=== PATIENT | male | born 1955 | race American Indian/Alaskan Native ===

== ENCOUNTER 2017-11-09 05:42 | Day surgery (SDC) | payer BC ==
[2017-11-09] MEDS ORDERED: NACL 0.9% 1000 ML 1,000 ML IV SCH (06:00)
[2017-11-09] MEDS ORDERED: PEPCID PO NR (06:00)
[2017-11-09] MEDS ORDERED: VERSED IV NR (06:00)
[2017-11-09] MEDS ORDERED: NACL BACTERIOSTATIC INFILTRATI ONE (06:26)
[2017-11-09] MEDS ORDERED: PERCOCET 5/325 PO PRN (07:00)
[2017-11-09] MEDS ORDERED: MORPHINE IV PRN (07:00)
[2017-11-09] MEDS ORDERED: ZOFRAN IV PRN (07:00)
--- NOTE | 2017-11-09 07:00 | Anesthesia Day of Surgery ---
Anesthesia Day of Surgery - Day of Surgery Patient Examined: Yes Patient H&P Reviewed: Yes Patient is NPO: Yes
--- NOTE | 2017-11-09 07:00 | Anesthesia Consultation ---
Anesthesia Consult and Med Hx Date of service: 11/09/17 - Airway Anesthetic Teeth Evaluation: Good, Partials ROM Head & Neck: Adequate Mental/Hyoid Distance: Adequate Mallampati Class: Class II Intubation Access Assessment: Probably Good - Pulmonary Exam CTA: Yes - Cardiac Exam Cardiac Exam: RRR - Pre-Operative Health Status ASA Pre-Surgery Classification: ASA1 Proposed Anesthetic Plan: General - Pulmonary Hx Smoking: No Hx Sleep Apnea: No (JOHN PRE SCREEN LOW RISK) - Cardiovascular System Hx Hypertension: No - Other Systems Hx Cancer: No
[2017-11-09] MEDS ORDERED: MARCAINE 0.25% INFILTRATI ONE ×2 (07:41→10:13)
[2017-11-09] MEDS ORDERED: DIPRIVAN 10 MG/ML IV ONE (07:45)
[2017-11-09] MEDS ORDERED: SUBLIMAZE ONE ×2 (07:46→10:01)
[2017-11-09] MEDS ORDERED: ANCEF/STERILE WATER 2 GM/20 ML IV NR (08:25)
[2017-11-09] MEDS ORDERED: XYLOCAINE MPF 2% ONE (08:34)
[2017-11-09] MEDS ORDERED: ROBINUL ONE ×2 (08:35→10:06)
[2017-11-09] MEDS ORDERED: NEOSTIGMINE ONE (08:35)
[2017-11-09] MEDS ORDERED: ZEMURON IV ONE (08:35)
[2017-11-09] MEDS ORDERED: QUELICIN ONE (08:35)
[2017-11-09] MEDS ORDERED: ZOFRAN ONE (08:35)
[2017-11-09] MEDS ORDERED: NEOSPORIN GU IR ONE ×2 (09:42→09:57)
[2017-11-09] MEDS ORDERED: NACL 0.9% IR ONE (10:13)
--- NOTE | 2017-11-09 10:38 | Post Operative Note ---
Date of procedure: 11/09/17 Pre-op diagnosis: huge scrotal mass Post-op diagnosis: same Findings: huge mass Procedure: huge rih repair Anesthesia: GETA Estimated blood loss: minimal Pathology: list (lipoma) Specimen disposition: to lab Condition: stable Disposition: PACU
--- NOTE | 2017-11-09 10:39 | Discharge Summary ---
Short Stay Discharge Plan Activity: other (no lifting ) Weight Bearing Status: Full Weight Bearing Diet: low fat, low cholesterol, low salt Wound: keep clean and dry, other (remove dressing in 48 hrs) Special Instructions: other (ice to groin in rr ) Follow up with: ANG MORA MD [Primary Care Provider] - 7 Days
[2017-11-09] MEDS ORDERED: PHENERGAN PO ONE (14:00)
--- NOTE | 2017-11-09 14:21 | Operative Report ---
PREOPERATIVE DIAGNOSES: Huge scrotal mass, intermittent pain, enlarging scrotal mass. POSTOPERATIVE DIAGNOSES: Huge indirect and direct inguinal hernia, right side. PROCEDURE: Right inguinal exploration and right inguinal hernia repair with plug and mesh. SURGEON: Drew Garnett MD ANESTHESIA: General. FINDINGS: This is a gentleman with huge mass extending all the way down the scrotum. We cannot feel the testicle at all. It is at least 12 cm. Now presents for repair and exploration, possible orchiectomy as discussed preoperatively. DESCRIPTION OF PROCEDURE: The patient brought to the operating room and placed on the operating table. Following induction of anesthesia, placed over the ____ table, prepped and draped in usual sterile fashion. An oblique incision made over the external ring, carried through this fascia, which was attenuated. This entire bulge was coming out and then the entire fascia was . We freed up the mass from the testis. The cord and the vessels and the vas were wrapped around this sac, which extended all the way down to the scrotum. We were able to reduce with severing the sac and did not have to open it. This huge sac was then reduced into a large hole after it was dissected free. The cord vessels and vas were isolated and from injury with a [place] drain. We did not open the tunica vaginalis either. Once the large amount of thickened attenuated fascia had to be and then partially removed. Lipoma was removed. We then got down to the pubic tubercle, isolated and placed 3 sutures there for later use. The large defect was plugged with a large plug and secured so it would not move. The external oblique aponeurosis was already wide open and very thickened amount of tissue around it from long-term scarring. Once we put a plug and secured it, we placed a keyhole mesh around the cord loosely. The testis was brought down to the scrotum and be sure it was down. Minimal blood loss. The patient tolerated the procedure well. Wound was intermittently irrigated with antibiotic solution. Superficial fascia was closed with 2-0 and 3-0 Vicryl and skin with clips was brought to recovery room. Family notified, in stable condition. JOB# [id number] KELTON/RUBÉN
[2017-11-09 15:50] VITALS: BP 129/73
== END 2017-11-09 14:10 | disposition home or self-care (01) ==
LOC: OR 05:42
PROVIDERS: ATTEND Urology
DX: K40.90 Unilateral inguinal hernia, without obstruction or gangrene, not specified as recurrent (principal); Z98.890 Other specified postprocedural states; I10 Essential (primary) hypertension
CPT/HCPCS: 49505; 88302; C1781; J0330; J0690; J2250; J2405; J2704; J2710; J3010; J7030; Q0169